=== PATIENT | male | born 1935 | race Caucasian/White ===

== ENCOUNTER → 2024-03-24 | Outpatient (REF) | payer MEDICARE ==
[~2024-03-24] MED LIST: ASPRIN; BIOTIN; COQ-10; MIRALAX; VIT E; VITAMIN C500 M5 PO; Z.0.FISH OIL500 M1 PO; Z.2.CALCIUM 600 +1 E; [UNRECOGNIZED DRUG - OTHER] PO; [UNRECOGNIZED DRUG - OTHER] PO
== END ==
LOC: MRI 07:39
PROVIDERS: ATTEND Psychiatry & Neurology Neurology
DX: R27.0 Ataxia, unspecified (principal); R41.3 Other amnesia; M79.606 Pain in leg, unspecified; R20.9 Unspecified disturbances of skin sensation; R29.6 Repeated falls
CPT/HCPCS: 70551; 72148

== ENCOUNTER 2024-04-10 10:57 | Outpatient (RCR) | payer MEDICARE | END 2024-05-07 | LOC: PT 10:57 | PROVIDERS: ATTEND Psychiatry & Neurology Neurology | DX: R27.0 Ataxia, unspecified (principal); M62.81 Muscle weakness (generalized) ==